=== PATIENT | female | born 1995 | race Caucasian/White ===

== ENCOUNTER 2025-05-25 08:00 | Outpatient (RCR) | payer OTHER, SELFPAY ==
--- NOTE | 2025-01-17 11:25 | HP.PTEVAL ---
Patient's Visit Information Visit Information Visit Information: DOT SUGGS is a 29 year old F referred to Physical Therapy by Jeni Guerra CNM with a diagnosis of M62.89. Date of Evaluation: 01/17/25 Physical Therapist: Maryann Mancia Visit Plan Frequency: 1-2x /Week Duration: 3 Months Plan: Continue 1-2 x week. How is she doing with deep breathing (was breathing more in her chest and less belly breathing)? Did she order dilators? Continue pelvic floor releases. Dot has significant pelvic floor tightness and guarding. She would benefit from skilled PT intervention to address her tightness and improve her tolerance to penetration. She is not currently but is currently working with a fertility doctor and plans to do the first round of IUI likely in February. She also has pelvic floor weakness which we will address after her tightness is more resolved to hopefully improve her incontinence and ability to hold back gas. Subjective Subjective: For 2 years she has been working with a fertility doctor. [employer] is wondering if she will be able to have a vaginal due to tightness. Pain with insertion of a speculum on a vaginal exam. 2-3 years ago she almost passed out with a gynecological exam. She is doing fertility treatments. In February she hopes to do a IUI. Sometimes she has trouble emptying her bowels, holding back gas, and pain with bowel movements. She has had stress incontinence. She doesn't remember that ever not being an issue for her. She has leaking mostly with sneezing. She has pain with intercourse at times. Deep penetration pain. She would say 25-30% she has pain with deep penetration. Pressure No pain after intercourse. When she was younger she couldn't use a tampon for 2-3 years. She had a lot of pain with penetration. 8/10. Varies day to day though. No complaints of low back pain. 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 Pain Deep vaginal pain: Pain Intensity (Out of 10): 0 Pain Intensity Range: 8 Objective Objective: POPDI-6 0, CRAD-8 8, GAGAN-6 2 Significant pelvic floor tightness all layers and superficially at introitus, superiorly at urethral sphincter LAYCOCK 2/3/3/2 - DIFFICULTY RELAXING BETWEEN CONTRACTIONS Suspect that she holds tension in her abdominals, glutes, pelvic floor - she states she deals with anxiety Able to bear down Deep breathing- Not able to breath into belly easily (more in chest) and she has difficulty timing coordination of exhale with jose david abdominals - bearing down on exhale Goals Goal 1:: Dot will be able to tolerate vaginal penetration with a gynecological exam using a medium sized speculum without pain during or after. Goal Time Frame: 8-12 Weeks Goal 2:: Dot will be able to cough or sneeze without leaking. Goal Time Frame: 8-12 Weeks Goal 3:: Dot will be independent in proper breathing mechanics to lessen pressure down thru her pelvic floor to help improve her stress incontinence. Goal Time Frame: 4-6 Weeks Goal 4:: Ladonna will be able to hold back gas to avoid any embarrassment episodes. Goal Time Frame: 6-8 Weeks Goal 5:: Dot will experience no pain with bowel movements. Rehabilitation Potential Physical Therapy Diagnosis: Dyspareunia, Unspecified N94.10, Stress Incontinence Rehabilitation Potential: Excellent Anticipated Interventions Patient/Client Instruction: Educate patient on: Condition and Plan of Care For the Purpose of:: To improve muscle performance and motor function, To decrease soft tissue restriction and To improve self management Therapeutic Exercise to Include: Strength training, Neuromotor development, Relaxation training and Biofeedback For the Purpose of:: To improve muscle performance and motor function and To improve self management Manual Therapy Techniques to Include: Trigger point massage, Mobilization and Soft tissue mobilization For the Purpose of:: To improve muscle performance and motor function, To improve health and function and To improve self management Text: Thank you for the opportunity to evaluate your patient. For Medicare and Medicare HMO plans, please review the plan of care and approve it. It will need to be FAXED BACK to us at [phone] for Medicare purposes. For Medicare only, by signing this I certify the plan of care. Please let me know if there are questions or concerns regarding this plan of care. Physician Signature: Date:
== END 2025-05-25 19:00 | disposition home or self-care (01) ==
LOC: PT 08:00
PROVIDERS: PCP Student in an Organized Health Care Education/Training Program; Referring Provider Advanced Practice Midwife; Visit Provider Advanced Practice Midwife
DX: M62.89 Other specified disorders of muscle (principal)
CPT/HCPCS: 97110; 97112; 97140; 97161; 97530